=== PATIENT | male | born 1955 | race Caucasian/White ===

== ENCOUNTER 2021-08-13 02:33 | Outpatient (CLI) | payer OTHER, SELFPAY ==
[2021-08-13 12:33] LABS: HCT 49.1 % (40.0-50.0); HGB 16.2 g/dL (13.5-17.5); MCH 33.9 pg (27.0-33.0); MCV 102.7 fL (80-95); MPV 10.6 fL (8.0-11.0); Platelet Count 253 10^3/uL (130-400); RBC 4.78 10^6/uL (4.36-5.78); RDW 12.5 % (11.8-14.1); RDW-SD 48.2 fL; WBC 7.67 10^3/uL (4.4-10.8)
[2021-08-13 13:11] LABS: ALT 17 U/L (16-63); AST 8 U/L (15-37); Albumin 4.3 g/dL (3.4-5.0); Alkaline Phosphatase 59 U/L (46-116); Anion Gap 4.6 mmol/L (3-11); BUN 12 mg/dL (7-18); Bilirubin, Total 0.4 mg/dL (0.2-1.0); CO2 34.4 mmol/L (21.0-32.0); CREATININE 0.9 mg/dL (0.70-1.30); Calcium 9.4 mg/dL (8.5-10.1); Calculated LDL 142 mg/dL (<100); Chloride 102 mmol/L (98-107); Cholesterol 213 mg/dL (<200); Glucose 104 mg/dL (74-106); HDL Cholesterol 45 mg/dL (40-60); Potassium 3.9 mmol/L (3.5-5.1); Sodium 141 mmol/L (136-145); Total Protein 7.8 g/dL (6.4-8.2); Triglyceride 132 mg/dL (<150)
== END 2021-08-13 02:34 | disposition home or self-care (01) ==
LOC: LOS 02:33
PROVIDERS: PCP Emergency Medicine; Visit Provider Nurse Practitioner Family
DX: C92.10 Chronic myeloid leukemia, BCR/ABL-positive, not having achieved remission; Z13.220 Encounter for screening for lipoid disorders; N52.9 Male erectile dysfunction, unspecified
CPT/HCPCS: 36415; 80053; 80061; 85027

== ENCOUNTER 2021-08-23 01:22 | Outpatient (CLI) | payer MEDICARE, SELFPAY ==
[2021-08-23 10:33] LABS: Source Nasal/Nares
[2021-08-23 13:32] LABS: COVID-19 PCR Negative (Negative)
== END 2021-08-23 01:23 | disposition home or self-care (01) ==
LOC: LBO 01:22
PROVIDERS: PCP Emergency Medicine; Visit Provider Ophthalmology
DX: Z20.822 Contact with and (suspected) exposure to COVID-19 (principal); Z01.818 Encounter for other preprocedural examination
CPT/HCPCS: 87635

== ENCOUNTER 2021-08-26 11:11 | Day surgery (SDC) | payer MEDICARE, SELFPAY ==
[2021-08-26 11:26] VITALS: BP 168/90; PULSE 79; RESP 17; TEMP 36.2; O2SAT 96
[2021-08-26] MEDS: Tropicam./Phenyleph. (1/2.5%) 5 ML BTL OD ×3 (11:37→11:47)
--- NOTE | 2021-08-26 11:48 | W.ANESPRE ---
General Info Date of Service Date Performed: 08/26/21 Height: 5 ft 9 in Weight: 65.6 kg Body Mass Index (BMI): 21.3 Surgical Procedure: Operation Date: 08/26/21 14:40 Proposed Procedures Side Surgeon p Cataract Extraction with IOL Implant Right Irvin Medeiros MD Meds Allergies and Home Medications Allergies Allergy/AdvReac Type Severity Reaction Status Date / Time No Known Allergies Allergy Verified 08/26/21 11:22 Home Medication Medication Instructions Recorded omeprazole 1 cap PO BID 10/25/13 cholecalciferol (vitamin D3) 2,000 unit PO DAILY 05/14/18 Saccharomyces boulardii 250 mg 250 mg PO BID 08/12/21 capsule albuterol sulfate 90 mcg/actuation 2 puff INHALATION QID PRN #8.5 g 08/12/21 aerosol inhaler fluticasone 250 mcg-salmeterol 50 1 inh INHALATION BID #60 ea 08/12/21 mcg/dose blistr powdr for inhalation triamcinolone acetonide 0.1 % 1 applic TOPICAL DAILY #30 g 08/12/21 topical cream Current Visit Medications: Current Medications Generic Name Dose Route Start Last Admin Trade Name Freq PRN Reason Stop Dose Admin Acetaminophen 1,000 mg 08/26/21 06:00 Acetaminophen 500 Mg Tab PO Q4H PRN PRN Miscellaneous Medication 0 ml 08/26/21 06:00 Prednisolone 1%, Moxifloxacin 0.5%, Nepafenac 0.1% 5ml Btl OD DIRECTED [facility] Miscellaneous Medication 0 ml 08/26/21 06:00 08/26/21 11:47 Tropicam./Phenyleph. (1/2.5%) 5 Ml Btl OD 1 drp DIRECTED [facility] Administration Tetracaine HCl 0 ml 08/26/21 06:00 Tetracaine 0.5% 4 Ml Btl OD DIRECTED [facility] PFSH Active Problems Active Problems: Problem Status Onset Code Polyp of colon 06/25/09 K63.5 Near syncope 07/15/17 R55 Impotence 09/10/12 N52.9 Diverticulosis of colon without diverticulitis 08/11/12 K57.30 Chronic obstructive lung disease 02/16/09 J44.9 Chronic myeloid leukemia 10/25/13 C92.10 CTS (carpal tunnel syndrome) 07/12/14 G56.00 Gan's esophagus 09/27/12 K22.70 Acute hepatitis C 10/25/13 B17.10 Nuclear sclerotic cataract of right eye H25.11 Medical History Medical History CML (chronic myelocytic leukemia) in remission for 4 years Surgical History Surgical History (Updated 08/26/21 @ 11:21 by Christiano Sims) elbow surgery (~2011) hernia repair x3 Hx of tonsillectomy Tobacco Smoking/Tobacco Use Status: Current every day Tobacco Type: cigarettes Alcohol Alcohol Intake: never Substance Use Substance use: Never Substance use type: does not use Vital Signs and Lab Results Vital Signs Most Recent Vital Signs in EMR: Most Recent Vital Signs Temp Pulse Resp BP Pulse Ox 36.2 C L 79 17 168/90 H 96 08/26/21 11:26 08/26/21 11:26 08/26/21 11:26 08/26/21 11:26 08/26/21 11:26 Lab Results Blood Type / Crossmatch: No Data to Display Complete Blood Count: White Blood Count 7.67 10^3/uL (4.4-10.8) 08/13/21 11:33 08/13/21 Red Blood Count 4.78 10^6/uL (4.36-5.78) 08/13/21 11:33 08/13/21 Hemoglobin 16.2 g/dL (13.5-17.5) 08/13/21 11:33 08/13/21 Hematocrit 49.1 % (40.0-50.0) 08/13/21 11:33 08/13/21 Platelet Count 253 10^3/uL (130-400) 08/13/21 11:33 08/13/21 Complete Metabolic Panel: Sodium Level 141 mmol/L (136-145) 08/13/21 11:33 08/13/21 Potassium Level 3.9 mmol/L (3.5-5.1) 08/13/21 11:33 08/13/21 Chloride Level 102 mmol/L (98-107) 08/13/21 11:33 08/13/21 Carbon Dioxide Level 34.4 mmol/L (21.0-32.0) H 08/13/21 11:33 08/13/21 Blood Urea Nitrogen 12 mg/dL (7-18) 08/13/21 11:33 08/13/21 Creatinine 0.9 mg/dL (0.70-1.30) 08/13/21 11:33 08/13/21 Estimated GFR/1.73 m2 >= 60.00 (mL/min/1.73m2) 08/13/21 11:33 08/13/21 Calcium Level 9.4 mg/dL (8.5-10.1) 08/13/21 11:33 08/13/21 Albumin 4.3 g/dL (3.4-5.0) 08/13/21 11:33 08/13/21 Glucose Level 104 mg/dL (74-106) 08/13/21 11:33 08/13/21 Liver Function Panel: Alanine Aminotransferase (ALT/SGPT) 17 U/L (16-63) 08/13/21 11:33 08/13/21 Aspartate Amino Transf (AST/SGOT) 8 U/L (15-37) L 08/13/21 11:33 08/13/21 Coagulation Panel: No Data to Display Cardiac Panel: No Data to Display Arterial Blood Gas: No Data to Display Venous Blood Gas: No Data to Display Pancreas Panel: No Data to Display Thyroid Panel: No Data to Display Infectious Disease: Coronavirus (COVID-19)(PCR) Negative (Negative) 08/23/21 09:19 08/23/21 Coronavirus 2019 Source Nasal/Nares 08/23/21 09:19 08/23/21 Blood Cultures: No Data to Display Toxicology Panel: No Data to Display Anesthesia Assessment and Plan Anesthesia History Personal History: No History of Anesthesia Complications Family History: No Family History of Anesthesia Complications Exercise Tolerance Exercise Tolerance: Metabolic Equivalents>4 Pertinent Negatives Pertinent Negatives: No Symptoms of GERD (Controlled) Cardiac & Pulmonary Exam Cardiac Exam: Normal S1/S2 Heart Sounds Pulmonary Exam: Clear Bilateral Breath Sounds Airway Exam Known Difficult Airway: No Mallampati Class: 1 Mouth Opening: Normal (> 3cm) Thyromental Distance: Greater than 3 cm Neck Range of Motion: Full ROM Neck Circumference: Normal Teeth Condition: Removable Dentures/Plates Upper ASA Classification ASA Score: ASA 2 Emergency Case?: No NPO Status NPO Status: NPO Clears >2 hours, Solids >8 hours Anesthesia Plan Resuscitation Status: Full Code Anesthesia Technique: MAC Anesthesia Airway Planned: Natural Airway Monitors Used: Standard Monitors
[2021-08-26 12:12] VITALS: BMI 21.3
[2021-08-26] MEDS: Lidocaine 2% Jelly 6 ML SYR (12:19)
[2021-08-26] MEDS: Tetracaine 0.5% 4 ML BTL OD (12:19)
[2021-08-26] MEDS: Povidone-Iodine Ophth 30 ML BTL (12:20)
[2021-08-26] MEDS: Trypan Blue 0.06% 0.5 ML SYR (12:29)
[2021-08-26] MEDS: Balanced Salt Soln.-PLUS 500 ML BAG (12:31)
[2021-08-26] MEDS: Duovisc Viscoelastic System EACH 1 EACH (12:31)
[2021-08-26] MEDS: Lidocaine 1% Pres-Free 5 ML VIAL (12:32)
--- NOTE | 2021-08-26 12:53 | W.PM.DSUDISC ---
Discharge Plan Disposition Patient Disposition: HOME Condition: Good Discharge Details Attending Provider: Irvin Medeiros Primary Care Provider: Isaiah Silvestre Home Meds and New Rx's Prescriptions: No Action Saccharomyces boulardii [Daily Probiotic (S. boulardii)] 250 mg capsule 250 mg PO BID RF: 0 fluticasone propion-salmeterol [Advair Diskus] 250-50 mcg/dose blister with device 1 inh inhalation BID Qty: 60 RF: 3 albuterol sulfate 90 mcg/actuation HFA aerosol inhaler 2 puff inhalation QID PRN (Reason: shortness of breath or wheezing) Qty: 8.5 RF: 3 triamcinolone acetonide 0.1 % cream 1 applic Topical DAILY Qty: 30 RF: 3 omeprazole 20 MG capsule,delayed release(DR/EC) 1 cap PO BID RF: 0 cholecalciferol (vitamin D3) 5,000 UNIT tablet 2,000 unit PO DAILY RF: 0 Discharge Instructions Stand Alone Forms: Post-op Topical Cataract, Leticia Nixon (DSU) Discharge Orders Discharge Orders: Discharge Order (Routine); Ordered 08/26/21 Ordered By: Irvin Medeiros DS: Diagnosis Discharge Diagnosis (1) Nuclear sclerotic cataract of right eye: Status: Resolved
--- NOTE | 2021-08-26 12:54 | ROE_ITS ---
Date of service: 08/26/21 Time of Service: 12:54 Operative Note Operative Note DATE OF PROCEDURE: 08/26/21 PRE-OP DIAGNOSIS: Dense nuclear cataract, right eye Poor red reflex, right eye secondary to cataract POST-OP DIAGNOSIS: same PROCEDURE: Cataract extraction using phacoemulsification with intraocular lens implantation, right eye, using capsular staining with Vision Blue SURGEON: Irvin Medeiros ANESTHESIA TYPE: Local By Surgeon and MAC Refer to Anesthesia Record PATHOLOGY: none sent COMPLICATIONS: None Patient was transported to: same day Patient's condition: stable Implants: [employer]é / [employer] Tecnis [id number] Indications: Progressive visual loss due to cataract, right eye Procedure Description: CATARACT SURGERY OPERATIVE REPORT PREOPERATIVE DIAGNOSIS: 1. Dense nuclear cataract, right eye 2. Poor red reflex secondary to #1 POSTOPERATIVE DIAGNOSIS: Same OPERATION: 1. Cataract extraction using phacoemulsification with posterior chamber intraocular lens implant, right eye. 2. Capsular staining with Vision Blue IOL: IOL Wash Helper/Model: [employer]é [employer] Noé / CRISTÓBAL Tecnis [id number] IOL Power: + 12.0 diopters IOL Serial Number: [id number] Optic Diameter: 6.0mm Haptic/Overall Diameter: 13.0mm PHACO INFO: Jarrod [employer] Vision System with OZil and [employer] Cumulative Dispersed Energy (CDE): 18.44 seconds SURGEON: Irvin Medeiros MD, NAHID ANESTHESIA: Monitored Anesthesia Care (MAC), with local sub-tenon's anesthetic infiltration COMPLICATIONS: None SPECIMENS: None INDICATIONS FOR PROCEDURE: Patient is a 66-year-old gentleman with history of high myopia who has developed a significant nuclear cataract in the right eye. The option of cataract surgery was offered to the patient and he felt he was symptomatic that he wished to proceed. PROCEDURE: The correct surgical eye was identified and marked as the right eye and the pupil was dilated in the preoperative area using mydriatics and cycloplegics. The dilated pupil size was 8.0 mm. He elected to proceed without oral sedation.. The patient was brought to the operating room where cardiopulmonary monitoring was instituted and surgical time-out was performed, confirming the correct operative eye and IOL power. Topical anesthesia was administered and ophthalmic povidone-iodine 5% was instilled into the conjunctival fornices. Lidocaine gel was applied to the cornea and the dione-ocular area was prepped with Betadine 10% solution and draped in the usual sterile fashion for intraocular surgery, including an aperture drape. A Tegaderm transparent film dressing was cut in half and used to cover the lashes and lid margins. Care was taken to sequester the lashes and lid margins under the Tegaderm dressing. A lid speculum was placed between the lids of the operative eye and the Jose-Onofre operating microscope was maneuvere d into position. Salma scissors were then used to make a conjunctival buttonhole approximately 6mm posterior to the limbus in the inferonasal quadrant. Blunt dissection was carried out to expose bare sclera, and a blunt-tipped sub-tenon?s anesthesia cannula was introduced and passed posteriorly along the globe where non- preserved plain lidocaine was injected into posterior sub-Tenon?s space. A sideport knife was used to make a paracentesis port inferotemporally. Intraocular phenylephrine/lidocaine was injected into the anterior chamber. Air was injected into the anterior chamber, followed by Vision Blue, which was painted over the anterior capsule and then irrigated out with BSS. The anterior chamber was filled with viscoelastic. A 2.4mm keratome knife was used to create a half-thickness groove at the limbus and then to construct a three-plane near- clear corneal tunnel extending 2.0mm into clear cornea superiortemporally. A flap was raised on the anterior capsule and capsulorhexis forceps were used to complete a continuous curvilinear capsulorhexis of 5.5 mm. The anterior chamber was noted to be quite deep. Balanced salt solution was then used to perform cortical cleaving hydrodissection and nuclear hydrodelineation until the lens could be freely rotated within the capsular bag. The lens nucleus was then disassembled and removed within the capsular bag and iris plane using phacoemulsification. Residual cortical material was removed using the I/A handpiece. The posterior capsule was carefully polished to remove as much residual lens epithelial cells as safely possible. The capsular bag was then inflated and the anterior chamber deepened with viscoelastic. The lens implant described above was inserted into the capsular bag using the CRISTÓBAL [place] Injector. A Kuglen hook was used to dial the IOL into position. Residual viscoelastic was then removed first from posterior to the IOL, then from the anterior chamber using the I/A handpiece. The lens implant was noted to center nicely within the capsular bag. The incisions were stromally hydrated, and the anterior chamber was reformed using BSS. Then 0.5cc of moxifloxacin 1.0mg/ml were injected into the capsular bag and anterior chamber. The incisions were checked with a Weck spear and found to be secure. Several drops of ophthalmic povidone-iodine 5% were then applied to the eye followed by two dr ops of Imprimis combination prednisolone/moxifloxacin/nepafenac solution. The drapes were removed and a clear plastic protective eye shield was placed over the eye. The patient was then returned to Same Day Surgery in stable condition.
--- NOTE | 2021-08-26 12:54 | W.ANESPOSTOP ---
Postoperative Evaluation Date, Time and Location Date Performed: 08/26/21 Time Performed: 12:54 Patient Location: Day Surgery Unit Vital Signs Most Recent Imported Vital Signs: Most Recent Vital Signs Temp Pulse Resp BP Pulse Ox 36.2 C L 79 17 168/90 H 96 08/26/21 11:26 08/26/21 11:26 08/26/21 11:26 08/26/21 11:26 08/26/21 11:26 Most Recent Manually Entered Vital Signs: Adult Blood Pressure: 147/90 Heart Rate: 72 Respirations: 10 Oxygen Saturation (%): 96 Temperature (C): 36.3 C Pain Score (0-10 Scale): 0 Pain Score Most Recent Pain Score: Most Recent Pain Score Pain Level 0 08/26/21 11:26 Assessment Mental Status: Awake (Alert & Oriented to Patient Baseline) Airway and Respiratory Function: Patent airway with normal (patient baseline) respiratory exam Cardiovascular Function: Hemodynamically Stable Hydration Status: Adequately Hydrated Nausea & Vomiting: No Nausea or Vomiting Pain: Pt. Denies Any Pain Peripheral Nerve Block: Patient did not receive a nerve block
[2021-08-26 12:55] VITALS: BP 147/90; PULSE 72; RESP 10; TEMPC 36.3; O2SAT 96
== END 2021-08-26 13:15 | disposition home or self-care (01) ==
PROVIDERS: PCP Emergency Medicine; Visit Provider Ophthalmology
PROC: (CPT 66984; principal; 2021-08-26 14:30)
DX: H25.11 Age-related nuclear cataract, right eye (principal); J44.9 Chronic obstructive pulmonary disease, unspecified; K22.70 Barrett's esophagus without dysplasia; C92.10 Chronic myeloid leukemia, BCR/ABL-positive, not having achieved remission
CPT/HCPCS: 66984; V2632

== ENCOUNTER 2021-09-06 03:21 | Outpatient (CLI) | payer MEDICARE, SELFPAY ==
[2021-09-06 10:54] LABS: Source Nasal/Nares
[2021-09-06 14:23] LABS: COVID-19 PCR Negative (Negative)
== END 2021-09-06 03:22 | disposition home or self-care (01) ==
LOC: LBO 03:22
PROVIDERS: PCP Emergency Medicine; Visit Provider Ophthalmology
DX: Z20.822 Contact with and (suspected) exposure to COVID-19 (principal); Z01.818 Encounter for other preprocedural examination
CPT/HCPCS: 87635

== ENCOUNTER 2021-09-09 10:25 | Day surgery (SDC) | payer MEDICARE, SELFPAY ==
[2021-09-09 11:05] VITALS: BP 164/86; PULSE 69; RESP 16; TEMP 36.2; O2SAT 98
[2021-09-09] MEDS: Tropicam./Phenyleph. (1/2.5%) 5 ML BTL OS ×3 (11:05→11:16)
--- NOTE | 2021-09-09 11:29 | W.ANESPRE ---
General Info Date of Service Date Performed: 09/09/21 Height: 5 ft 9 in Weight: 66.7 kg Body Mass Index (BMI): 21.7 Surgical Procedure: Operation Date: 09/09/21 13:40 Proposed Procedures Side Surgeon p Cataract Extraction with IOL Implant Left Irvin Medeiros MD Meds Allergies and Home Medications Allergies Allergy/AdvReac Type Severity Reaction Status Date / Time No Known Allergies Allergy Verified 09/09/21 10:53 Home Medication Medication Instructions Recorded omeprazole 1 cap PO DAILY 10/25/13 cholecalciferol (vitamin D3) 2,000 unit PO DAILY 05/14/18 Saccharomyces boulardii 250 mg 250 mg PO Q OTHER DAY 08/12/21 capsule albuterol sulfate 90 mcg/actuation 2 puff INHALATION QID PRN #8.5 g 08/12/21 aerosol inhaler fluticasone 250 mcg-salmeterol 50 1 inh INHALATION BID #60 ea 08/12/21 mcg/dose blistr powdr for inhalation triamcinolone acetonide 0.1 % 1 applic TOPICAL DAILY #30 g 08/12/21 topical cream Current Visit Medications: Current Medications Generic Name Dose Route Start Last Admin Trade Name Freq PRN Reason Stop Dose Admin Acetaminophen 1,000 mg 09/09/21 06:55 Acetaminophen 500 Mg Tab PO Q4H PRN PRN Miscellaneous Medication 0 ml 09/09/21 06:55 Prednisolone 1%, Moxifloxacin 0.5%, Nepafenac 0.1% 5ml Btl OS DIRECTED [facility] Miscellaneous Medication 0 ml 09/09/21 06:55 09/09/21 11:16 Tropicam./Phenyleph. (1/2.5%) 5 Ml Btl OS 1 drp DIRECTED [facility] Administration Tetracaine HCl 0 ml 09/09/21 06:55 Tetracaine 0.5% 4 Ml Btl OS DIRECTED [facility] PFSH Active Problems Active Problems: Problem Status Onset Code Polyp of colon 06/25/09 K63.5 Near syncope 07/15/17 R55 Impotence 09/10/12 N52.9 Diverticulosis of colon without diverticulitis 08/11/12 K57.30 Chronic obstructive lung disease 02/16/09 J44.9 Chronic myeloid leukemia 10/25/13 C92.10 CTS (carpal tunnel syndrome) 07/12/14 G56.00 Gan's esophagus 09/27/12 K22.70 Acute hepatitis C 10/25/13 B17.10 Nuclear sclerotic cataract of right eye H25.11 Medical History Active Problem List Polyp of colon (Acute 06/25/09) Near syncope (Acute 07/15/17) Impotence (Acute 09/10/12) Diverticulosis of colon without diverticulitis (Acute 08/11/12) Chronic obstructive lung disease (Acute 02/16/09) Chronic myeloid leukemia (Acute 10/25/13) CTS (carpal tunnel syndrome) (Acute 07/12/14) Gan's esophagus (Acute 09/27/12) Acute hepatitis C (Acute 10/25/13) Medical History CML (chronic myelocytic leukemia) in remission for 4 years Surgical History Surgical History (Updated 09/09/21 @ 10:53 by Lidia Agarwal) elbow surgery (~2011) hernia repair x3 History of prior ablation treatment Barretts esophagus Hx of cataract surgery Hx of tonsillectomy Tobacco Smoking/Tobacco Use Status: Current every day Tobacco Type: cigarettes Alcohol Alcohol Intake: never Substance Use Substance use: Never Substance use type: does not use Vital Signs and Lab Results Vital Signs Most Recent Vital Signs in EMR: Most Recent Vital Signs Temp Pulse Resp BP Pulse Ox 36.2 C L 69 16 164/86 H 98 09/09/21 11:05 09/09/21 11:05 09/09/21 11:05 09/09/21 11:05 09/09/21 11:05 Lab Results Blood Type / Crossmatch: No Data to Display Complete Blood Count: White Blood Count 7.67 10^3/uL (4.4-10.8) 08/13/21 11:33 08/13/21 Red Blood Count 4.78 10^6/uL (4.36-5.78) 08/13/21 11:33 08/13/21 Hemoglobin 16.2 g/dL (13.5-17.5) 08/13/21 11:33 08/13/21 Hematocrit 49.1 % (40.0-50.0) 08/13/21 11:33 08/13/21 Platelet Count 253 10^3/uL (130-400) 08/13/21 11:33 08/13/21 Complete Metabolic Panel: Sodium Level 141 mmol/L (136-145) 08/13/21 11:33 08/13/21 Potassium Level 3.9 mmol/L (3.5-5.1) 08/13/21 11:33 08/13/21 Chloride Level 102 mmol/L (98-107) 08/13/21 11:33 08/13/21 Carbon Dioxide Level 34.4 mmol/L (21.0-32.0) H 08/13/21 11:33 08/13/21 Blood Urea Nitrogen 12 mg/dL (7-18) 08/13/21 11:33 08/13/21 Creatinine 0.9 mg/dL (0.70-1.30) 08/13/21 11:33 08/13/21 Estimated GFR/1.73 m2 >= 60.00 (mL/min/1.73m2) 08/13/21 11:33 08/13/21 Calcium Level 9.4 mg/dL (8.5-10.1) 08/13/21 11:33 08/13/21 Albumin 4.3 g/dL (3.4-5.0) 08/13/21 11:33 08/13/21 Glucose Level 104 mg/dL (74-106) 08/13/21 11:33 08/13/21 Liver Function Panel: Alanine Aminotransferase (ALT/SGPT) 17 U/L (16-63) 08/13/21 11:33 08/13/21 Aspartate Amino Transf (AST/SGOT) 8 U/L (15-37) L 08/13/21 11:33 08/13/21 Coagulation Panel: No Data to Display Cardiac Panel: No Data to Display Arterial Blood Gas: No Data to Display Venous Blood Gas: No Data to Display Pancreas Panel: No Data to Display Thyroid Panel: No Data to Display Infectious Disease: Coronavirus (COVID-19)(PCR) Negative (Negative) 09/06/21 09:13 09/06/21 Coronavirus 2019 Source Nasal/Nares 09/06/21 09:13 09/06/21 Blood Cultures: No Data to Display Toxicology Panel: No Data to Display Anesthesia Assessment and Plan Anesthesia History Personal History: No History of Anesthesia Complications Family History: No Family History of Anesthesia Complications Exercise Tolerance Exercise Tolerance: Metabolic Equivalents>4 Pertinent Negatives Pertinent Negatives: No Symptoms of GERD, No Major Cardiovascular Symptoms or Complaints, No Major Pulmonary Symptoms or Complaints and No History of CVA/TIA Cardiac & Pulmonary Exam Cardiac Exam: Normal S1/S2 Heart Sounds Pulmonary Exam: Clear Bilateral Breath Sounds Implantable Cardiac Device Does patient have a Pacemaker or an ICD?: No Airway Exam Known Difficult Airway: No Mallampati Class: 1 Mouth Opening: Normal (> 3cm) Thyromental Distance: Greater than 3 cm Neck Range of Motion: Full ROM Neck Circumference: Normal Teeth Condition: Removable Dentures/Plates Upper ASA Classification ASA Score: ASA 2 Emergency Case?: No NPO Status NPO Status: NPO Clears >2 hours, Solids >8 hours Anesthesia Plan Resuscitation Status: Full Code Anesthesia Technique: MAC Anesthesia Airway Planned: Natural Airway Monitors Used: Standard Monitors
[2021-09-09 11:31] VITALS: BMI 21.7
[2021-09-09] MEDS: Tetracaine 0.5% 4 ML BTL OS (11:46)
[2021-09-09] MEDS: Povidone-Iodine Ophth 30 ML BTL (11:47)
[2021-09-09] MEDS: Lidocaine 2% Jelly 6 ML SYR (11:47)
[2021-09-09] MEDS: Duovisc Viscoelastic System EACH 1 EACH (11:53)
[2021-09-09] MEDS: Balanced Salt Soln.-PLUS 500 ML BAG (11:53)
[2021-09-09] MEDS: Lidocaine 1% Pres-Free 5 ML VIAL (11:54)
[2021-09-09] MEDS: Trypan Blue 0.06% 0.5 ML SYR (12:03)
--- NOTE | 2021-09-09 12:15 | W.PM.DSUDISC ---
Discharge Plan Disposition Patient Disposition: HOME Condition: Good Discharge Details Attending Provider: Irvin Medeiros Primary Care Provider: Isaiah Silvestre Home Meds and New Rx's Prescriptions: No Action Saccharomyces boulardii [Daily Probiotic (S. boulardii)] 250 mg capsule 250 mg PO Q OTHER DAY RF: 0 fluticasone propion-salmeterol [Advair Diskus] 250-50 mcg/dose blister with device 1 inh inhalation BID Qty: 60 RF: 3 albuterol sulfate 90 mcg/actuation HFA aerosol inhaler 2 puff inhalation QID PRN (Reason: shortness of breath or wheezing) Qty: 8.5 RF: 3 triamcinolone acetonide 0.1 % cream 1 applic Topical DAILY Qty: 30 RF: 3 omeprazole 20 MG capsule,delayed release(DR/EC) 1 cap PO DAILY RF: 0 cholecalciferol (vitamin D3) 5,000 UNIT tablet 2,000 unit PO DAILY RF: 0 Discharge Instructions Stand Alone Forms: Post-op Topical Cataract, Leticia Nixon (DSU) Discharge Orders Discharge Orders: Discharge Order (Routine); Ordered 09/09/21 Ordered By: Irvin Medeiros DS: Diagnosis Discharge Diagnosis (1) Nuclear sclerotic cataract of left eye: Status: Resolved
--- NOTE | 2021-09-09 12:16 | ROE_ITS ---
Date of service: 09/09/21 Time of Service: 12:17 Operative Note Operative Note DATE OF PROCEDURE: 09/09/21 PRE-OP DIAGNOSIS: Dense nuclear cataract, left eye Poor red reflex, left eye POST-OP DIAGNOSIS: same PROCEDURE: Cataract extraction using phacoemulsification with intraocular lens implant, left eye, using capsular staining with Vision Blue SURGEON: Irvin Medeiros ANESTHESIA TYPE: Local By Surgeon and MAC Refer to Anesthesia Record COMPLICATIONS: None Patient was transported to: same day Patient's condition: stable Implants: Noé and Noé / [employer] Tecnis [id number] Indications: Progressive decreased vision due to cataract, left eye, with poor red reflex Procedure Description: CATARACT SURGERY OPERATIVE REPORT PREOPERATIVE DIAGNOSIS: 1. Nuclear cataract, left eye 2. Poor red reflex secondary to #1 POSTOPERATIVE DIAGNOSIS: Same OPERATION: 1. Cataract extraction using phacoemulsification with posterior chamber intraocular lens implant, left eye. 2. Capsular staining with Vision Blue IOL: IOL Project Manager/Team Coach/Model: Noé & Noé / CRISTÓBAL Tecnis [id number] IOL Power: + 12.0 diopters IOL Serial Number: [id number] Optic Diameter: 6.0 mm Haptic/Overall Diameter: 13.0 mm PHACO INFO: Jarrod Centurion Vision System with OZil and Active Fluidics Cumulative Dispersed Energy (CDE): 11.81 seconds SURGEON: Irvin Medeiros MD, NAHID ANESTHESIA: Monitored [facility]), with local sub-tenon's anesthetic infiltration COMPLICATIONS: None SPECIMENS: None INDICATIONS FOR PROCEDURE: The patient is a 66-year-old gentleman with history of myopia who has developed significant bilateral nuclear cataract. He is significantly symptomatic that he desires cataract surgery and attempt to improve and maximize his vision. He has already undergone cataract surgery in the right eye and is doing well postoperatively. He now presents for cataract surgery in the left eye. PROCEDURE: The correct surgical eye was identified and marked as the left eye and the pupil was dilated in the preoperative area using mydriatics and cycloplegics. The dilated pupil size was 8.0 mm. He elected to proceed without oral sedation.. The patient was brought to the operating room where cardiopulmonary monitoring was instituted and surgical time-out was performed, confirming the correct operative eye and IOL power. Topical anesthesia was administered and ophthalmic povidone-iodine 5% was instilled into the conjunctival fornices. Lidocaine gel was applied to the cornea and the dione-ocular area was prepped with Betadine 10% solution and draped in the usual sterile fashion for intraocular surgery, including an aperture drape. A Tegaderm transparent film dressing was cut in half and used to cover the lashes and lid margins. Care was taken to sequester the lashes and lid margins under the Tegaderm dressing. A lid speculum was placed between the lids of the operative eye and the Jose-Onofre operating microscope was maneuvered into position. Salma scissors were then used to make a conjunctival buttonhole approximately 6mm posterior to the limbus in the inferonasal quadrant. Blunt dissection was carried out to expose bare sclera, and a blunt-tipped sub-tenon?s anesthesia cannula was introduced and passed posteriorly along the globe where non- preserved plain lidocaine was injected into posterior sub-Tenon?s space. A sideport knife was used to make a paracentesis port superiorly/superiort emporally. Intraocular phenylephrine/lidocaine was injected int the anterior chamber.. Air was then injected into the anterior chamber, followed by Vision Blue, which was painted over the anterior capsule and then irrigated out using BSS. The anterior chamber was filled with viscoelastic. A 2.4mm keratome knife was used to create a half-thickness groove at the limbus and then to construct a three-plane near-clear corneal tunnel extending 2.0mm into clear cornea at the 3:00 position. A flap was raised on the anterior capsule and capsulorhexis forceps were used to complete a continuous curvilinear capsulorhexis of 5.5 mm. Balanced salt solution was then used to perform cortical cleaving hydrodissection and nuclear hydrodelineation until the lens could be freely rotated within the capsular bag. The lens nucleus was then disassembled and removed within the capsular bag and iris plane using phacoemulsification. Residual cortical material was removed using the 45-degree angled silicone I/A tip with 0.3mm port. The posterior capsule was carefully polished to remove as much residual lens epithelial cells as safely possible. The capsular bag was then inflated and the anterior chamber deepened with viscoelastic. The lens implant described above was inserted into the capsular bag using the CRISTÓBAL Trinity Injector. A Kuglen hook was used to dial the IOL into position. Residual viscoelastic was then removed first from posterior to the IOL, then from the anterior chamber using the I/A handpiece. The lens implant was noted to center nicely within the capsular bag. The incisions were stromally hydrated, and the anterior chamber was reformed using BSS. Then 0.5cc of moxifloxacin 1.0mg/ml were injected into the capsular bag and anterior chamber. The incisions were checked with a Weck spear and found to be secure. Several drops of ophthalmic povidone-iodine 5% were then applied to the eye followed by two drops of Imprimis combination prednisolone/moxifloxacin/nepafenac solution. The drapes were removed and a clear plastic protective eye shield was placed over the eye. The patient was then returned to Same Day Surgery in stable condition.
[2021-09-09 12:22] VITALS: BP 140/89; PULSE 67; RESP 16; TEMP 36.4; O2SAT 98
--- NOTE | 2021-09-09 12:27 | W.ANESPOSTOP ---
Postoperative Evaluation Date, Time and Location Date Performed: 09/09/21 Time Performed: 12:28 Patient Location: Day Surgery Unit Vital Signs Most Recent Imported Vital Signs: Most Recent Vital Signs Temp Pulse Resp BP Pulse Ox 36.4 C L 67 16 140/89 98 09/09/21 12:22 09/09/21 12:22 09/09/21 12:22 09/09/21 12:22 09/09/21 12:22 Pain Score Most Recent Pain Score: Most Recent Pain Score Pain Level 0 09/09/21 12:22 Assessment Mental Status: Awake (Alert & Oriented to Patient Baseline) Airway and Respiratory Function: Patent airway with normal (patient baseline) respiratory exam Cardiovascular Function: Hemodynamically Stable Hydration Status: Adequately Hydrated Nausea & Vomiting: No Nausea or Vomiting Pain: Pt. Denies Any Pain Peripheral Nerve Block: Patient did not receive a nerve block
== END 2021-09-09 12:38 | disposition home or self-care (01) ==
PROVIDERS: PCP Emergency Medicine; Visit Provider Ophthalmology
PROC: (CPT 66984; principal; 2021-09-09 13:30)
DX: H25.12 Age-related nuclear cataract, left eye (principal)
CPT/HCPCS: 66984; V2632

== ENCOUNTER 2023-02-26 01:53 | Outpatient (CLI) | payer MEDICARE, SELFPAY ==
[2023-02-26 12:15] LABS: CREATININE 0.9 mg/dL (0.70-1.30); Estimated GFR 93.61 (mL/min/1.73m2); Potassium 4.2 mmol/L (3.5-5.1)
== END 2023-02-26 01:54 | disposition home or self-care (01) ==
LOC: LOS 01:53
PROVIDERS: PCP Nurse Practitioner Family; Visit Provider Nurse Practitioner Family
DX: I10 Essential (primary) hypertension (principal)
CPT/HCPCS: 36415; 82565; 84132

== ENCOUNTER 2024-04-10 18:42 | Emergency (ER) | payer MEDICARE, SELFPAY ==
[2024-04-10] VITALS (21 sets, daily range): BP systolic 155–199; BP diastolic 41–94; PULSE 66–89; RESP 16–26; TEMP 37.7; O2SAT 92–95
--- NOTE | 2024-04-10 18:45 | RT.EKG_ITS ---
APPROVED REPORT Exam: Resting ECG Reason for Exam: blacking out Patient Location: E HR:72 bpm ECG Measurements Heart Rate 72 AXIS RI 150 P 87 QRSd 83 QRS 82 QT 405 T 66 QTc 444 Conclusion Sinus rhythm...normal P axis, V-rate 60- 99
--- NOTE | 2024-04-10 19:15 | DI.RAD_ITS ---
Exam(s) XR CHEST 2V PA LATERAL EXAM: XR CHEST 2V PA LATERAL CLINICAL HISTORY: syncope TECHNIQUE: 2D digital imaging was performed. Two views. COMPARISON: CT ABD PELVIS WITH CONTRAST from 12/22/2008 CR CHEST 2 VIEWS PA,LAT from 09/03/2017 FINDINGS: HEART: Normal size. Aorta: Not dilated. PULMONARY VASCULATURE: Normal. LUNGS: Inflation. Linear scarring at the lung bases. Even tray cabrera of the posterior right diaphrag m. Question of increased densities at the right lung base, beneath the hilum which could represent o verlapping structures versus infiltrate PLEURAL SPACE: No pleural effusion or pneumothorax. BONE:Unremarkable for age. Soft tissues: Unremarkable. IMPRESSION: COPD. Question right lower lobe infiltrate. DATA REPOSITORY: RADIATION DOSE DELIVERED:
--- NOTE | 2024-04-10 19:15 | DI.CT_ITS ---
Exam(s) CT BRAIN NECK CTA EXAM: CT BRAIN NECK CTA CLINICAL HISTORY: vertigo, syncope, right temporal headache. TECHNIQUE: Imaging Protocol: Axial CT angiography was performed with multi-slice acquisition and mu lti-planar and MIP reconstructions. CONTRAST MATERIAL: Intravenous: Omnipaque 350 Contrast volume:85 mL COMPARISON: CT ABD PELVIS WITH CONTRAST from 12/22/2008 FINDINGS: CT Head W/O and W contrast: Ventricles and Extra axial spaces: Normal in size and morphology for the patient's age. Hemorrhage: None. Cerebral parenchyma: No evidence of acute infarct or mass. Midline shift: None. Brainstem/Cerebellum: No acute findings.. Calvarium: Normal. Visualized Paranasal sinuses/Mastoids: Clear. Soft Tissues: Unremarkable. Enhancement: Normal. CTA Brain W: Internal Carotid Arteries: Petrous: Normal. Cavernous: Normal. Cerebral: Normal. Middle Cerebral Arteries: Right: No aneurysm, occlusion or significant stenosis. Left: No aneurysm, occlusion or significant stenosis. Anterior Cerebral Arteries: Right: No aneurysm, occlusion or significant stenosis. Left: No aneurysm, occlusion or significant stenosis. Posterior cerebral Arteries: Right: No aneurysm, occlusion or significant stenosis. Left: No aneurysm, occlusion or significant stenosis. Vertebral Arteries: Right: No aneurysm, occlusion or significant stenosis. Left: No aneurysm, occlusion or significant stenosis. Basilar Artery: No aneurysm, occlusion or significant stenosis. CTA Neck W: Common Carotid: Calcific plaque at the common carotid bulbs. Right: No dissection, occlusion or significant stenosis. Left: No dissection, occlusion or significant stenosis. External Carotid: Right: No dissection, occlusion or significant stenosis. Left: No dissection, occlusion or significant stenosis. Internal Carotid: Calcific plaque proximally.. Right: No dissection, occlusion or significant stenosis. Left: No dissection, occlusion or significant stenosis. Vertebral Artery: Right: No dissection, occlusion or significant stenosis. Left: No dissection, occlusion or significant stenosis. Lung Apices: No acute findings. Emphysematous changes. Bones: No acute abnormality. Soft Tissues: Normal. IMPRESSION: 1. CTA brain: Normal CTA examination of the [place]. 2. Head CT: Unremarkable CT Head. 3. CTA neck: Mild calcific plaque at the common carotid bulbs. No significant stenosis. No evidence of dissection. RADIATION DOSE DELIVERED: Total DLP DATA REPOSITORY: All CT scans at this facility are submitted to the National Radiology Data Registry (NRDR) Dose Index Registry (DIR) with the [employer] (ACR). RADIATION OPTIMIZATION: All CT scans at this facility use at least one of these dose optimization te chniques: automated exposure control; mA and/or kV adjustment per patient size (includes targeted exa ms where dose is matched to clinical indication); or iterative reconstruction.
--- NOTE | 2024-04-10 19:17 | W.ED.GENAD ---
Discharge Plan Disposition Patient Disposition: Home Condition: Improving Discharge Details Clinical Impression: Pneumonia, Syncope Primary Care Provider: [facility] ED Provider: Irvin Rodriguez Home Meds and New Rx's Prescriptions: New amoxicillin-pot clavulanate 875-125 mg tablet 1 tab PO BID 5 Days Qty: 10 0RF azithromycin 250 mg tablet 250 mg PO DAILY 4 Days Qty: 4 0RF No Action cholecalciferol (vitamin D3) 5,000 UNIT tablet 2,000 unit PO DAILY albuterol sulfate 90 mcg/actuation HFA aerosol inhaler 2 puff inhalation QID PRN (Reason: shortness of breath or wheezing) Qty: 8.5 3RF fluticasone propion-salmeterol [Advair Diskus] 250-50 mcg/dose blister with device 1 inh inhalation BID Qty: 60 3RF Discharge Instructions Instructions: Pneumonia, Adult (DC), Syncope (Fainting) (DC) Additional Instructions: Please help with your primary care physician. Please return to the emergency department for any worsening symptoms HPI General Date/Time Provider Initiated Documentation: 04/10/24 19:02. HPI Narrative: 69-year-old male history of hypertension CML, presents after syncopal episode from standing felt lightheaded and collapsed to the ground, no chest pain or shortness of breath brief in nature no seizure-like activity no bowel or bladder incontinence. Patient endorses right-sided temporal headache. Also feels dizzy/spinning sensation. Has had prior events like this in the past without definitive diagnosis Related Data Home Medications Medication Instructions Recorded Confirmed cholecalciferol (vitamin D3) 125 2,000 unit PO DAILY 05/14/18 04/10/24 mcg (5,000 unit) tablet albuterol sulfate 90 mcg/actuation 2 puff inhalation QID PRN 10/12/23 04/10/24 aerosol inhaler shortness of breath or wheezing #8.5 grams fluticasone 250 mcg-salmeterol 50 1 inh inhalation BID #60 ea 01/13/24 04/10/24 mcg/dose blistr powdr for inhalation (Advair Diskus) amoxicillin 875 mg-potassium 1 tab PO BID 5 days #10 tabs 04/10/24 clavulanate 125 mg tablet azithromycin 250 mg tablet 250 mg PO DAILY 4 days #4 tabs 04/10/24 Previous Rx's Medication Instructions Recorded albuterol sulfate 90 mcg/actuation 2 puff inhalation QID PRN 10/12/23 aerosol inhaler shortness of breath or wheezing #8.5 grams fluticasone 250 mcg-salmeterol 50 1 inh inhalation BID #60 ea 01/13/24 mcg/dose blistr powdr for inhalation (Advair Diskus) amoxicillin 875 mg-potassium 1 tab PO BID 5 days #10 tabs 04/10/24 clavulanate 125 mg tablet azithromycin 250 mg tablet 250 mg PO DAILY 4 days #4 tabs 04/10/24 Allergies Allergy/AdvReac Type Severity Reaction Status Date / Time No Known Allergies Allergy Verified 04/10/24 18:54 General Stated Complaint: Dizzy/Sync JESSICA: 3 Review of Systems Narrative: Review of Systems Constitutional: negative Eyes: negative ENT: negative Cardiovascular: negative Respiratory: negative Gastrointestinal: negative : negative Musculoskeletal: negative Skin: negative Neurologic: Headache dizziness syncope Psych: negative Exam Narrative Exam Narrative: Physical Examination General: alert, awake, cooperative, resting comfortably, no acute distress HEENT: normocephalic, atraumatic; PERRL, EOM intact, conjunctiva normal; no nasal discharge; moist mucous membranes, oral and pharyngeal mucosa normal, tolerating secretions Neck: supple, trachea midline; full ROM Chest: normal to inspection Respiratory: normal respiratory effort, speaking in full sentences, clear to auscultation, no wheezing, rales or rhonchi Cardiac: regular rate, regular rhythm, S1S2 intact, no murmurs rubs or gallops GI: abdomen soft, non-tender, non-distended; no palpable mass or hepatosplenomegaly Skin: no lesions, rashes or trauma appreciated Neuro: AAOx3, normal speech, moving all extremities; cranial nerves II through XII intact out of 5 strength upper and lower extremities bilaterally no truncal ataxia Extremities: No peripheral edema Psych: Appropriate mood and affect Course Vital Signs Vital signs: Vital Signs Temperature 37.7 C H 04/10/24 18:45 Pulse 84 04/10/24 18:45 Respiratory Rate 18 04/10/24 18:45 Blood Pressure 178/94 H 04/10/24 18:45 Pulse Oximetry 95 04/10/24 18:45 Temperature 37.7 C H 04/10/24 18:45 Temperature Source Temporal Artery Scan 04/10/24 18:45 Pulse 84 04/10/24 18:45 Respiratory Rate 18 04/10/24 18:45 Blood Pressure 178/94 H 04/10/24 18:45 Pulse Oximetry 95 04/10/24 18:45 Medical Decision Making 69-year-old male history of hypertension CML, prior syncopal episodes presents after syncopal episode from standing, prodrome of lightheadedness and dizziness, no chest pain or shortness of breath brief LOC, no seizure-like activity, afebrile nontoxic neurologically intact 5 out of 5 strength upper and lower extremities cranial nerves intact no ataxia, normal speech, persistent right-sided temporal headache mild in nature, nonmeningeal, no external signs of trauma, persistent symptomatology of lightheadedness/spinning sensation, must consider CVA versus vertigo versus ACS versus arrhythmia low suspicion for PE or aortic pathology given history and physical muscles consider electrolyte derangement versus dehydration versus orthostatic hypotension versus vasovagal episode will obtain CT CTA head neck, chest x-ray EKG basic labs troponin trial of fluids meclizine and acetaminophen 22: 06 patient resting comfortably asymptomatic. Neurologically intact. CT head unremarkable chest x-ray concerning for new right lower lobe infiltrate. Patient has endorsed worsening cough over the last several days. Will start on empiric Augmentin and azithromycin. Patient family feel comfortable going home home care instructions and return precautions given Quality:SDOH Health Related Social Needs: No Data to Display PFSH All Active Problems (Updated 04/10/24 @ 22:10 by Irvin Rodriguez MD) Syncope (Chronic) Pneumonia (Acute) Hypertension (Chronic) Polyp of colon (Acute 06/25/09) 07/04 COLONOSCOPY: 2.5 CM TUBULAR ADENOMA; [place] [facility] [place] (Acute 07/15/17) Runs of VT on zio patch 08/11 cardiac cath no signif. lesions 2018 Impotence (Acute 09/10/12) Diverticulosis of colon without diverticulitis (Acute 08/11/12) Chronic obstructive lung disease (Acute 02/16/09) Chronic myeloid leukemia (Acute 10/25/13) Oral meds for 5 years then cleared. CTS (carpal tunnel syndrome) (Acute 07/12/14) Gan's esophagus (Acute 09/27/12) Acute hepatitis C (Acute 10/25/13) treated Medical History (Updated 04/10/24 @ 22:10 by Irvin Rodriguez MD) CML (chronic myelocytic leukemia) in remission for 4 years Surgical History (Updated 04/24/22 @ 13:26 by Bay See NP) Status post hernia repair History of elbow surgery Nuclear sclerotic cataract of left eye Surgically repaired Hx of cataract surgery History of prior ablation treatment Barretts esophagus Hx of tonsillectomy Nuclear sclerotic cataract of right eye Surgically repaired hernia repair x3 elbow surgery (~2011) Family History Mother Neoplasm COLON Father Neoplasm LUNG Brother No problems noted. Grandfather Neoplasm Grandfather Stroke Grandmother Stroke Grandmother Stroke Brother No problems noted. Brother No problems noted. Social History (Updated 04/30/23 @ 15:33 by Gisselle Wang) Smoking/Tobacco Use Status: Current every day Tobacco Type: cigarettes Tobacco: How many years used: 50 Quit status: considering quitting Second Hand Exposure: Yes Smoking risk assessment performed?: Yes Alcohol Intake: former Drug use: Occasionally Substance use type: marijuana Caregiver/Support person: No Household members: spouse Housing: house Do you need help understanding health information?: Rarely Pets and animals: Yes Pets and animals: dog(s) Sexually active: No Do you think of yourself as: straight/heterosexual Current gender identity: male What is your relationship status?: How often do you talk on the phone with friends or family?: once per week How often do you get together with friends or relatives?: once per week How often do you attend episcopal or cheondoism services?: decline to answer Do you belong to any clubs or organized social groups?: no Panel score (0-1 are the most socially isolated patients): 1 What type of physical activity do you participate in: walking Duration: 15-30 minutes/day Frequency: 3-4 times per week Elise/Pentecostal: None Special elise needs: No Seatbelt use: always Helmet use: Yes Helmet use: always Drive intox 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
[2024-04-10 19:20] LABS: Abs Immature Grans 0.09 10^3/uL (0.0-0.06); Absolute Basophil Count 0.07 10^3/uL (0.0-0.2); Absolute Eosinophil Count 1.48 10^3/uL (0.0-0.7); Absolute Lymphocyte Count 2.54 10^3/uL (1.2-3.4); Absolute Monocyte Count 0.64 10^3/uL (0.1-0.8); Absolute Neutrophil Count 4.75 10^3/uL (1.2-6.7); Basophils % 0.7 %; Eosinophils % 15.5 %; HCT 47.8 % (40.0-50.0); HGB 16.5 g/dL (13.5-17.5); Immature Grans % 0.9 %; Lymphocytes % 26.5 %; MCH 34.5 pg (27.0-33.0); MCHC 34.5 % (32.0-36.0); MCV 100 fL (80-95); MPV 9.8 fL (8.0-11.0); Monocytes % 6.7 %; Neutrophils % 49.7 %; Platelet Count 281 10^3/uL (130-400); RBC 4.78 10^6/uL (4.36-5.78); RDW-SD 48.5 fL; WBC 9.57 10^3/uL (4.4-10.8)
[2024-04-10 19:33] LABS: INR 1.1 (0.9-1.1); PTT Activated 26.5 sec (23.6-32.8)
[2024-04-10] MEDS: Normal Saline 1,000 ML 1000 ML IV (19:35)
[2024-04-10] MEDS: Meclizine 25 MG TAB PO (19:35)
[2024-04-10 19:44] LABS: ALT 18 U/L (16-63); AST 8 U/L (15-37); Albumin 3.9 g/dL (3.4-5.0); Alkaline Phosphatase 55 U/L (46-116); Anion Gap 6.5 mmol/L (3-11); BUN 13 mg/dL (7-18); Bilirubin, Total 0.3 mg/dL (0.2-1.0); CO2 30.5 mmol/L (21.0-32.0); CREATININE 0.9 mg/dL (0.70-1.30); Calcium 8.9 mg/dL (8.5-10.1); Chloride 103 mmol/L (98-107); Estimated GFR 93.03 (mL/min/1.73m2); Glucose 103 mg/dL (74-106); Magnesium 1.9 mg/dL (1.8-2.4); NT-proBNP 137 pg/mL (<300); Sodium 140 mmol/L (136-145); TSH (W/Ref FT4) 2.68 uIU/mL (0.36-3.74); Total Protein 7.6 g/dL (6.4-8.2); Troponin I < 50 ng/L (< or =60)
[2024-04-10] MEDS: Normal Saline - Diluent 50 ML VIAL IJ (19:49)
[2024-04-10] MEDS: Omnipaque 350 MG/ML 100 ML BTL IJ (19:50)
[2024-04-10 19:59] LABS: Bilirubin Negative (Negative); Blood Trace-intact (Negative); Clarity Clear (Clear); Glucose Negative (Negative); Ketones Negative (Negative); Leukocyte Esterase Negative (Negative); Nitrite Negative (Negative); Specific Gravity 1.015 (1.005-1.025); Urobilinogen 0.2 mg/dL (Up to 0.2)
[2024-04-10 20:07] LABS: Bacteria Negative HPF (Negative); C & S Indicated? No; Casts Negative LPF (Negative); Crystals Negative HPF (Negative); Epithelial Cells Rare HPF (Negative); Mucus Negative (Negative); RBC 0-2 HPF (0-2); WBC 0-2 HPF (0-5)
[2024-04-10] MEDS: Normal Saline 500 ML 1000 ML IV (21:19)
--- NOTE | 2024-04-10 21:45 | DI.VRAD_ITS ---
PROCEDURE INFORMATION: Exam: CTA Head Without And With Contrast, Arteriography Exam date and time: 04/10/2024 7:53 PM Age: 69 years old Clinical indication: Syncope and collapse and vertigo and other: RT temporal ESPINOSA; Patient HX: Vertigo, syncope, RT temporal ESPINOSA TECHNIQUE: Imaging protocol: Computed tomographic angiography of the head without and with contrast. Exam focused on the arteries. 3D rendering (Not supervised by radiologist): MIP and/or 3D reconstructed images were created by the technologist. Contrast material: OMNIPAQUE 350; Contrast volume: 85 ml; Contrast route: INTRAVENOUS (IV); COMPARISON: No relevant prior studies available. FINDINGS: ANTERIOR CIRCULATION: Right internal carotid artery: Intracranial segment is patent with no significant stenosis or occlusion. No aneurysm. Right middle cerebral artery: No occlusion or significant stenosis. No aneurysm. Right anterior cerebral artery: No occlusion or significant stenosis. No aneurysm. Left internal carotid artery: Intracranial segment is patent with no significant stenosis. No aneurysm. Left middle cerebral artery: No occlusion or significant stenosis. No aneurysm. Left anterior cerebral artery: No occlusion or significant stenosis. No aneurysm. POSTERIOR CIRCULATION: Right vertebral artery: No occlusion or significant stenosis. No aneurysm. Left vertebral artery: No occlusion or significant stenosis. No aneurysm. Basilar artery: No occlusion or significant stenosis. No aneurysm. Right posterior cerebral artery: No occlusion or significant stenosis. No aneurysm. Left posterior cerebral artery: No occlusion or significant stenosis. No aneurysm. HEAD: Brain: There is mild cerebral atrophy with no intracranial mass, acute transcortical infarction or recent intracranial hemorrhage detected. Cerebral ventricles: No midline shift or hydrocephalus. Bones: No acute fracture. Paranasal sinuses: Grossly clear throughout. Mastoid air cells: Grossly clear bilaterally. Soft tissues: Unremarkable. IMPRESSION: 1. No large vessel stenosis or occlusion detected involving the major branches of the anterior or posterior intracranial circulation. 2. Mild atrophy with no acute transcortical infarction, recent intracranial hemorrhage or hydrocephalus. No acute intracranial process detected. PROCEDURE INFORMATION: Exam: CTA Neck Without And With Contrast Exam date and time: 04/10/2024 7:53 PM Age: 69 years old Clinical indication: Syncope and collapse and vertigo and other: RT temporal ESPINOSA; Patient HX: Vertigo, syncope, RT temporal ESPINOSA TECHNIQUE: Imaging protocol: Computed tomographic angiography of the neck without and with contrast. Exam focused on the cervical segments of the vasculature. 3D rendering (Not supervised by radiologist): MIP and/or 3D reconstructed images were created by the technologist. Contrast material: OMNIPAQUE 350; Contrast volume: 85 ml; Contrast route: INTRAVENOUS (IV); COMPARISON: CR CHEST 2 VIEWS PA,LAT 09/03/2017 8:47 AM FINDINGS: Right common carotid artery: No stenosis. No dissection or occlusion. Right internal carotid artery: Atherosclerotic calcifications are seen at the right carotid bifurcation and involving the origin of the right internal carotid artery with no evidence of 50% or greater stenosis of the extracranial segment. No dissection or occlusion. Right external carotid artery: No occlusion or stenosis of the origin. Left common carotid artery: No stenosis. No dissection or occlusion. Left internal carotid artery: Atherosclerotic calcifications are seen at the left carotid bifurcation and involving the origin of the left internal carotid artery with no evidence of 50% or greater stenosis of the extracranial segment. No dissection or occlusion. Left external carotid artery: No occlusion or stenosis of the origin. Right vertebral artery: No stenosis. No dissection or occlusion. Left vertebral artery: No stenosis. No dissection or occlusion. Soft tissues: Normal. No significant soft tissue swelling. Bones/joints: No acute fracture. IMPRESSION: No evidence of 50% or greater stenosis involving the cervical segments of the right or left internal carotid arteries by NASCET criteria. REFERENCES: NASCET CRITERIA. The degree of stenosis in the cervical segment of the internal carotid artery is based on NASCET criteria. Normal is no stenosis. Mild is less than 50% stenosis. Moderate is 50-69% stenosis. Severe is 70% to 99% stenosis. Total occlusion is no detectable patent lumen. Dictated and Authenticated by: Chang Quevedo MD. Ordering:JADE Bryan MD
--- NOTE | 2024-04-10 21:56 | DI.VRAD_ITS ---
PROCEDURE INFORMATION: Exam: XR Chest Exam date and time: 04/10/2024 8:04 PM Age: 69 years old Clinical indication: Other: Syncope TECHNIQUE: Imaging protocol: Radiologic exam of the chest. Views: 2 views. COMPARISON: CR CHEST 2 VIEWS PA,LAT 09/03/2017 8:47 AM FINDINGS: Lungs: Pulmonary hyperinflation is again evident with interval development of patchy infiltrate at the posterior right lung base which could reflect acute infiltrate or relate to aspiration. Pleural spaces: No pneumothorax or pleural effusion detected. Heart/Mediastinum: Heart size is normal and vessel margins are sharply defined. Bones/joints: No acute osseous lesions are detected. IMPRESSION: Hyperinflation with new posterior right basilar infiltrate as above. Dictated and Authenticated by: Chang Quevedo MD. Ordering:JADE Bryan MD
[2024-04-10] MEDS: Azithromycin 250 MG TAB 500 MG PO (22:26)
[2024-04-10] MEDS: Amoxicillin 875/Clav. 125 TAB PO (22:26)
--- NOTE | 2024-04-12 11:39 | NUR.NOTE ---
Accessed chart to determine number of EKG orders to match to [facility]. Nursing Note:
== END 2024-04-10 22:28 | disposition home or self-care (01) ==
PROVIDERS: Nurse Practitioner Acute Care; Emergency Provider Emergency Medicine; PCP Nurse Practitioner Family
DX: J18.9 Pneumonia, unspecified organism (principal); R55 Syncope and collapse; R50.9 Fever, unspecified; I10 Essential (primary) hypertension
CPT/HCPCS: 36415; 70496; 70498; 80053; 93005; 96360; 96361; 99285; 71046; 81003; 81015; 83735; 83880; 84443; 84484; 85025; 85610; 85730; 93010; 99283; J3490

== ENCOUNTER 2025-03-06 04:43 | Outpatient (CLI) | payer MEDICARE, SELFPAY ==
[2025-03-06 18:14] LABS: PSA, Screening 0.6 ng/mL (<=4.5)
== END 2025-03-06 04:44 | disposition home or self-care (01) ==
LOC: LOS 04:43
PROVIDERS: PCP Nurse Practitioner Family; Visit Provider Nurse Practitioner Family
DX: Z12.5 Encounter for screening for malignant neoplasm of prostate (principal)
CPT/HCPCS: 36415; 84153

== ENCOUNTER → 2025-04-27 08:12 | Outpatient (BNVA) | payer MEDICARE, SELFPAY | PROVIDERS: PCP Nurse Practitioner Family; Referring Provider Nurse Practitioner Family; Visit Provider Physician Assistant Surgical | DX: J43.1 Panlobular emphysema (principal); F17.210 Nicotine dependence, cigarettes, uncomplicated; C94.80 Other specified leukemias not having achieved remission; D72.18 Eosinophilia in diseases classified elsewhere | CPT/HCPCS: 99205; G0296 ==

== ENCOUNTER 2025-05-02 03:23 | Outpatient (CLI) | payer MEDICARE, SELFPAY ==
[2025-05-02] MEDS: Inhaler, Assist Device 1 EACH MC (15:52)
[2025-05-02] MEDS: Levalbuterol HFA 15 GM INH 4 PUFF IH (15:53)
--- NOTE | 2025-05-22 09:22 | W.PFT ---
Date of service: 05/02/25 Time of Service: 14:51 Pulmonary Function Test Result Indications: COPD Impression 1. Good patient effort was noted. ATS standards for reproducibility were met. 2. Spirometry showed severe obstructive lung disease with an FEV1 of 45% (1.27 L) 3. Following the administration of a bronchodilator there was a significant response 4. TLC and RV are elevated, consistent with air-trapping 5. 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
== END 2025-05-02 03:24 | disposition home or self-care (01) ==
LOC: RT 03:23
PROVIDERS: PCP Nurse Practitioner Family; Referring Provider Physician Assistant Surgical; Visit Provider Internal Medicine Pulmonary Disease
DX: J43.1 Panlobular emphysema (principal)
CPT/HCPCS: 94060; 94726; 94729

== ENCOUNTER 2025-05-04 01:08 | Outpatient (CLI) | payer MEDICARE, SELFPAY ==
--- NOTE | 2025-05-04 06:45 | DI.CTLCSR_ITS ---
Exam(s) CT CHEST LUNG CANCER SCREEN EXAM: CT CHEST LUNG CANCER SCREEN CLINICAL HISTORY: Screening for lung cancer,cigarette smoker, f17.210. TECHNIQUE: Imaging Protocol: Low Dose Technique CONTRAST MATERIAL: None COMPARISON: CR CHEST 2 VIEWS PA,LAT from 09/03/2017 CR,XR XR CHEST 2V PA LATERAL from 04/10/2024 FINDINGS: CHEST: LUNGS: There is COPD findings/hyperinflation. There is platelike atelectasis in the left lung base just above the hemidiaphragm. No other significant left lung findings and no pleural effusion. In the opposite-right lung there is some infiltrate in the right middle lobe just above the hemidiaphragm as well as in the anterior basal segment of the right lower lobe. No pleural effusions. There also small nodular infiltrates in the posterior aspect of the right upper lobe. No pleural effusions on either side MEDIASTINUM: There is no obvious hilar nor mediastinal adenopathy. CARDIAC: Heart size is normal. There is no pericardial effusion.Caliber of the thoracic aorta is within normal limits. OTHER: No adrenal masses. OSSEOUS: No significant osseous lesions.No fractures evident.. IMPRESSION: 1. Increased marked bases. The most significant finding is pleural based infiltrate in the right lung base-right middle lobe contiguous with the right hemidiaphragm, this area of infiltrate measuring approximately 4.5 cm wide by 1.5 cm. This corresponds what is described on the chest x-ray of 04/10/2024. Appropriate follow-up recommended to resolution. Other smaller sub cm nodular infiltrates noted in the right lung. 2. There are no pleural effusions and there is no obvious intrathoracic adenopathy. Lung-RADS category 3 - 6-month follow-up. Probably benign. Short-term follow-up suggested. Nodules with low likelihood of becoming active cancer. Lung-RADS 1.0 CATEGORIES: Category 0 - Prior chest CT exam(s) being located for comparison. Category 1 - Annual screening in 12 months. No nodules or definitely benign nodules. Category 2 - Annual screening in 12 months. Benign appearance. Nodules with low likelihood of becoming active cancer. Category 3 - 6-month follow-up. Probably benign. Short-term follow-up suggested. Nodules with low likelihood of becoming active cancer. Category 4A - 3-month follow-up and CT/PET if >8 mm in size. Suspicious finding. Findings which require additional testing. Category 4B - Findings which require additional testing and tissue sampling. Category 4X - Category 3 or 4 nodules with additional features or imaging findings that increases the suspicion of malignancy. Modifier S- Potentially clinically significant findings (non lung cancer) RADIATION DOSE DELIVERED: 26.96mGy.cm Total DLP DATA REPOSITORY: All CT scans at this facility are submitted to the National Radiology Data Registry (NRDR) Dose Index Registry (DIR) with the [employer] ([employer]). RADIATION OPTIMIZATION: All CT scans at this facility use at least one of these dose optimization techniques: automated exposure control; mA and/or kV adjustment per patient size (includes targeted exams where dose is matched to clinical indication); or iterative reconstruction.
== END 2025-05-04 01:28 ==
PROVIDERS: PCP Nurse Practitioner Family; Visit Provider Physician Assistant Surgical
DX: Z12.2 Encounter for screening for malignant neoplasm of respiratory organs (principal); F17.210 Nicotine dependence, cigarettes, uncomplicated; R91.8 Other nonspecific abnormal finding of lung field
CPT/HCPCS: 71271

== ENCOUNTER → 2025-05-31 08:42 | Outpatient (BNVA) | payer MEDICARE, SELFPAY | PROVIDERS: PCP Nurse Practitioner Family; Referring Provider Nurse Practitioner Family; Visit Provider Physician Assistant Surgical | DX: J43.1 Panlobular emphysema (principal); C94.80 Other specified leukemias not having achieved remission; D72.18 Eosinophilia in diseases classified elsewhere; Z23 Encounter for immunization; F17.210 Nicotine dependence, cigarettes, uncomplicated | CPT/HCPCS: 99214; 90471; 90684 ==